=== PATIENT | female | born 2000 | race Caucasian/White ===

== ENCOUNTER → 2023-09-12 15:10 | Outpatient (REF) | payer OTHER, SELFPAY | LOC: RCS 15:10 | PROVIDERS: ATTENDING PHYSICIAN Internal Medicine Cardiovascular Disease; FAMILY PHYSICIAN Family Medicine | DX: R07.89 Other chest pain (principal) | CPT/HCPCS: 93017 ==

== ENCOUNTER → 2023-10-31 11:19 | Outpatient (REF) | payer OTHER, SELFPAY | LOC: HWRAD 11:19 | PROVIDERS: ATTENDING PHYSICIAN Internal Medicine Gastroenterology; FAMILY PHYSICIAN Family Medicine | DX: R63.4 Abnormal weight loss (principal) | CPT/HCPCS: 71260; 74177; Q9967 ==

== ENCOUNTER 2024-02-26 09:32 | Emergency (ER) | payer OTHER, SELFPAY ==
[2024-02-26 09:36] VITALS: BP 114/77
--- NOTE | 2024-02-26 10:33 | ED.GENMED ---
History of Present Illness
General
Chief Complaint: Abdominal Symptoms
Source: patient
Exam Limitations: none
Time Seen by Provider: 02/26/24 10:09
Nursing documentation reviewed up to this point in time: agreed with
History of Present Illness
History of Present Illness:
PT IS A 23 Y/O F
h/o anxiety, daily cannabis use, had been off vaping for months becuase of [facility] but recently 1 mo ago restarted vaping
having more anxiety and nausea/vomiting since last week
she was having more signfiicant voluminous vomiting initially and more severe anxiety
she has been on zoloft for a few months
lsat week she called her PCP who told her to continue her ativan and add benadryl q6 hours (50 mg) but when her anxiety was still present he switched her to xanax 0.5 mg and she took 2 yesterday and 1 today and her anxiety is improved
her vomiting is less, but still present
but now she feels epigastric abd pain which is the primary reason why she is here
she has not fever, chills,
pt has also had a cough for a few weeks; dry hacking cough; she has not had any sputum production or fever but she has had post nasal drip
no sob
no chest pain
Past History
Past History
ED Past Medical History: Psychiatric (Panic disorder)
ED Past Surgical History: None
Social History
Tobacco: Non-smoker
Alcohol: Occasional
Drug: Marijuana
Personal: Single
Living: with family
Review of Systems
Review of Systems
Allergies reviewed?: Yes
All Other Systems: Not applicable
Phy Exam
Physical Exam
Physical Exam:
GENERAL: Alert , in no apparent distress, no vomiting
EYE: pupils equal and reactive
NECK: Supple
ENT: o/p clr, mmm. sipping water, tolerating well
CARDIAC: Regular rate and rhythm .
LUNGS: Clear breath sounds bilaterally, no acute respiratory distress, no wheezes/rales/rhonchi
ABDOMEN: Soft,very minimal epigastric tendrness, no r/g, no cvat, normal bowel sounds
NEUROLOGICAL: Alert and oriented, no focal neuro deficits
SKIN: Warm and dry, skin intact.
MUSCULOSKELETAL: No edema, well perfused. neg padmini's sign
PSYCH: Normal and appropriate interaction. does not seem overly anxious;
Course
Orders/Labs/Results
Orders:
Orders
02/26/24 10:28
Electrocardiogram (*1) Urgent
Reason for Study: Chest Pain
EKG- Treatment ONCE
02/26/24 10:29
0.9% Sodium Chloride 1000 ml [Nss] 1,000 ml IV BOLUS
Test Result ONCE
CR Chest - 2 Views Urgent
Comment:
Reason For Exam: COUGH
02/26/24 10:31
Famotidine [Pepcid] 20 mg IV NOW STA
02/26/24 10:39
Complete Blood Count/With Diff Urgent
Comprehensive Metabolic Panel Urgent
HCG, Serum Qualitative Screen Urgent
Lipase Urgent
Magnesium Urgent
Phos [Phosphorus] Urgent
02/26/24 11:07
Potassium Chloride [KCl] 20 meq 0.9% Sodium Chloride 250 ml [Nss] 250 ml IV NOW
02/26/24 11:24
Potassium Chloride Powder [Klor-Con] 20 meq PO NOW STA
02/26/24 11:26
Sodium/Potassium Phosphate Mix [Neutra-Phos Powder Packet] 250 mg PO NOW STA
02/26/24 11:28
CR Abdomen - 2 Views Urgent
Comment:
Reason For Exam: vomiting, abd pain
02/26/24 12:20
0.9% Sodium Chloride 1000 ml [Nss] 1,000 ml IV BOLUS
Potassium Chloride [KCl] 20 meq PO NOW STA
Sucralfate Suspension [Carafate Suspension] 1 gm PO NOW STA
02/26/24 12:30
US Abdomen Complete/Upper Urgent
Comment:
Reason For Exam: vomiting, epigastric pain
02/26/24 13:37
Urinalysis Reflex To Culture Urgent
Date Specimen was Collected: 02/26/24
Time Specimen was Collected: 13:36
Urine Microscopic Reflex Cult Urgent
Abnormal Lab Results
02/26/24 02/26/24
10:39 13:37
WBC 11.6 H 10^3/uL
(4.8-10.8)
Hgb 11.7 L g/dL
(12.0-16.0)
Hct 33.1 L %
(37.0-47.0)
MCV 76.3 L fL
(81.0-99.0)
Abs Immat Gran (auto) 0.1 H 10^3/uL
(0-0.05)
Absolute Neuts (auto) 9.8 H 10^3/uL
(1.4-6.5)
Absolute Lymphs (auto) 0.9 L 10^3/uL
(1.2-3.4)
Immature Gran % 0.8 H %
(0-0.5)
Neutrophils % 84.9 H %
(42.2-75.2)
Lymphocytes % 8.1 L %
(20.5-51.1)
Potassium 3.2 L mmol/L
(3.5-5.1)
Carbon Dioxide 20 L mmol/L
(22-30)
BUN 6 L mg/dl
(7-17)
Creatinine 0.5 L mg/dL
(0.6-1.0)
Glucose 108 H mg/dl
(70-99)
Phosphorus 1.8 L mg/dl
(2.5-4.5)
ALT 37 H U/L
(0-35)
Urine Ketones 3+ A
(Negative)
Urine Bilirubin 1+ A
(Negative)
Leukocyte Esterase Rfl Trace A
(Negative)
02/26/24 10:39
02/26/24 10:39
Vital Signs
Initial and Last Documented VS:
Initial Vital Signs
Temp Pulse Resp BP Pulse Ox
97.8 F 69 16 114/77 98
02/26/24 09:36 02/26/24 09:36 02/26/24 09:36 02/26/24 09:36 02/26/24 09:36
Last Documented Vital Signs
Temp Pulse Resp BP Pulse Ox
98.3 F 69 16 104/58 96
02/26/24 15:50 02/26/24 09:36 02/26/24 09:36 02/26/24 15:29 02/26/24 15:31
MDM/Problems Addressed
Differential Diagnosis Includes:
gastritis, pancreatitis, CHS, cholelithisais, bowel obstruction, PUD, pneumonia
MDM/Problems Addressed:
23 y/o F
cannabis use
has had hyperemesis disorder
stopped vaping for a while and started again 1 mo ago beause of her anxiety which is why she uses cannabis in the first place
pt says that she tried managing her symptoms with zofran, ativan, benadryl and was switched to xanax and her anxiety is better and her vomiting ismuch less bu tshe has epigastric pain that is sharp and constant and keeping her from eating
she still occasionally vomits
also has a dry cough for a few weeks but chalked that up to vaping
pt has not had fever, black stool, bloody vomit
she feels weak and dehydrated
on exam she is sipping on water, no vomiting
she has mild epigastric tendenress
otherwise normal exam
ekg qtc 450
was not really complaining of nausea but more pain
suspect gastritis
pepcid, carafate really helped her pain
she had AG mild 17 and ketones in urine c/w starvatio ketosis
mild hypokalemia and hypophos
given oral k and phos
and 2 L fluids
cxr indep reviewed: subtle opacity RLL c/w aspiration pneuomina
abd xray neg obs
US neg
was able to tolerate oral brotha nd liquids
d/c home with pepcid bid, carafate
and gi f/u
augmentin for pna- d/w ed attending dr. chavira who agreed
*Critical Care Note
Total Time (30-74mins, 75-104mins- exclusive of procedures): Not Applicable
ED Attending Note
-
Portions of this chart may have been created with voice recognition software.� Occasional wrong word or��sound alike� substitutions may have occurred due to the inherent limitations of voice recognition software.
Discharge Plan
Departure
Patient Disposition: Home (Routine Discharge)
Date of Disposition: 02/26/24
Time of Disposition: 15:08
Patient with high blood pressure during this ER visit?: No
Condition: Fair
Covid-19: Not Applicable
Discharge Problem:
Gastritis, Aspiration pneumonia
Instructions: Aspiration Pneumonia (DC), Gastritis (DC)
Prescriptions:
New
famotidine [Pepcid] 20 mg tablet
20 mg PO BID Qty: 30 0RF
sucralfate [Carafate] 100 mg/mL suspension
10 ml PO AC PRN (Reason: ABDOMINAL PAIN) Qty: 400 0RF
amoxicillin-pot clavulanate 875-125 mg tablet
1 tab PO Q12H Qty: 14 0RF
No Action
DayQuil Sinus Pressure/Pain 30-200 mg Tablet
1 tab PO Q4HPRN PRN (Reason: allergies)
diphenhydramine HCl [Benadryl] 50 mg Capsule
50 mg PO Q6HPRN PRN (Reason: allergies )
ondansetron HCl [Zofran] 4 mg Tablet
4 mg PO Q6HPRN PRN (Reason: nausea)
sertraline 100 mg Tablet
100 mg PO HS
alprazolam [Xanax] 0.5 mg Tablet
0.5 mg PO Q8HPRN PRN (Reason: anxiety)
norgestimate-ethinyl estradiol [Tri-Sprintec (28)] 0.18/0.215/0.25 mg-35 mcg (28) Tablet
1 tab PO HS
Referrals:
Arcadio Sanchez MD [Family Provider] -
Stand Alone Forms: Return to Work
Activity Restrictions/Additional Instructions:
YOUR BLOOD WORK SHOWS YOU HAD A SLIGHTLY LOW PHOSPHORUS AND POTASSIUM
THIS IS LIKELY FROM NOT EATING AND BEING DEHYDRATED
TRY EATING POTASSIUM RICH FOOD FOR THE NEXT FEW DAYS (AVOCADO, BANANA ETC)
SEE YOUR FALY DOCTOR TO HAVE THIS REPEATED
YOUR ULTRASOUND WAS NORMAL
YOUR CHEST XRAY SHOWS MILD ASPIRATION PNEUMONIA IN YOUR R LUNG
THIS IS USUALLY NOT TREATED WITH ANTIBIOTICS UNLESS SYMPTOMS WORSEN WITH COUGH/FEVER
SINCE YOU HAVE ONGOING COUGH,, YOU CAN TRY ANTIBIOTICS FOR 1 WEEK
YOU SHOULD SEE YOUR GI REGARDING YOUR VOMITING AND STOMACH PAIN
IN THE MEANTIME, TRY CARAFATE DIRECTEED NEEDED AND PEPCID 20 MG TWICE A DAY
RETURN FOR: REPETAED VOMITING, SEVERE PAIN, SHORTNESS OF BREATH, HIGH FEVER, BLACK STOOL OR ANY CONCERNS
Interventions
Interventions:
*Risk Screen - Suicide Last Done: 02/26/24 09:38
*General Assessment Last Done: 02/26/24 09:38
*Neglect/Abuse Screening Last Done: 02/26/24 09:38
*ED COVID-19 Vaccine History Last Done: 02/26/24 09:38
*Nursing Disposition Last Done: 02/26/24 15:50
DW-Rmkjdc-Ieeydtslff Assessment Last Done: 02/26/24 10:30
Discharge Date and Time
Discharge Date/Time: 02/26/24 15:51
Print Language: CROATIAN
[2024-02-26] MEDS: PEPCID 20 MG IV (10:41)
[2024-02-26] MEDS: NSS 1000 IV ×2 (10:43→12:31)
[2024-02-26 10:45] VITALS: BP 115/65
[2024-02-26 10:47] LABS: % Basophils 0.3 % (0-2); % Immature Granulocytes 0.8 % (0-0.5); % Lymphocytes 8.1 % (20.5-51.1); % Monocytes 4.9 % (1.7-9.3); % Neutrophils 84.9 % (42.2-75.2); Absolute Eosinophils 0.1 10^3/uL (0-0.7); Absolute Immature Granulocytes 0.1 10^3/uL (0-0.05); Absolute Lymphocytes 0.9 10^3/uL (1.2-3.4); Absolute Monocytes 0.6 10^3/uL (0.1-0.6); Absolute Neutrophils 9.8 10^3/uL (1.4-6.5); Hematocrit 33.1 % (37.0-47.0); Hemoglobin 11.7 g/dL (12.0-16.0); Mean Corp Hgb Conc. 35.3 g/dL (33.0-37.0); Mean Corpuscular Volume 76.3 fL (81.0-99.0); Mean Platelet Volume 9.9 fL (7.4-10.4); Nucleated Red Blood Cells % 0 %; Platelet Count 323 10^3/uL (130-400); Red Blood Cell Count 4.34 10^6/uL (4.20-5.40); Red Cell Dist. Width 13.2 % (11.5-14.5); White Blood Cell Count 11.6 10^3/uL (4.8-10.8)
[2024-02-26 10:57] LABS: HCG, Serum Qualitative Screen Negative
[2024-02-26 11:00] VITALS: BP 111/69
[2024-02-26 11:04] LABS: ALT (SGPT) 37 U/L (0-35); AST (SGOT) 27 U/L (14-36); Alkaline Phosphatase 71 U/L (38-126); Blood Urea Nitrogen 6 mg/dl (7-17); Carbon Dioxide 20 mmol/L (22-30); Chloride 103 mmol/L (98-107); Glucose 108 mg/dl (70-99); Lipase 52 U/L (23-300); Phosphorus 1.8 mg/dl (2.5-4.5); Potassium 3.2 mmol/L (3.5-5.1); Sodium 140 mmol/L (135-145); Total Bilirubin 0.4 mg/dl (0.2-1.3); Total Protein 6.7 g/dl (6.3-8.2); eGFR > 60.00
[2024-02-26] MEDS: KLOR-CON 20 MEQ PO (11:34)
[2024-02-26] MEDS: NEUTRA-PHOS POWDER PACKET 250 MG PO (12:03)
[2024-02-26] MEDS: CARAFATE SUSPENSION 1 GM PO (12:28)
[2024-02-26] MEDS: KCL 20 MEQ PO (12:28)
[2024-02-26 12:32] VITALS: BP 103/60
[2024-02-26 13:00] VITALS: BP 101/53
[2024-02-26 13:54] LABS: Urine Albumin Trace (Neg - Trace); Urine Bilirubin 1+ (Negative); Urine Character Clear (Clear); Urine Color Yellow; Urine Glucose Negative (Negative); Urine Ketone 3+ (Negative); Urine Leukocyte Trace (Negative); Urine Nitrite Negative (Negative); Urine Occult Blood Negative (Negative); Urine Urobilinogen Negative (Neg - 1+)
[2024-02-26 14:33] LABS: Urine Mucus Many
[2024-02-26 14:35] LABS: Urine Amorphous Seen
[2024-02-26 14:36] LABS: Urine Red Blood Cell 0-2 /HPF (0-2)
[2024-02-26 15:29] VITALS: BP 104/58
== END 2024-02-26 15:51 | disposition home or self-care (01) ==
LOC: EMR 09:32
PROVIDERS: Physician Assistant; EMERGENCY PHYSICIAN Emergency Medicine; FAMILY PHYSICIAN Family Medicine
DX: J69.0 Pneumonitis due to inhalation of food and vomit (principal); K29.70 Gastritis, unspecified, without bleeding
CPT/HCPCS: 99285; 96374; 96361 ×2; 71046; 74019; 76700; 80053; 81003; 81015; 83690; 83735; 84100; 84703; 85025; 93005

== ENCOUNTER 2024-06-11 23:36 | Emergency (ER) | payer OTHER, SELFPAY ==
[2024-06-12 00:01] VITALS: BP 128/83
[2024-06-12 00:31] LABS: % Basophils 0.2 % (0-2); % Immature Granulocytes 1.8 % (0-0.5); % Lymphocytes 10.5 % (20.5-51.1); % Monocytes 2.2 % (1.7-9.3); % Neutrophils 85.3 % (42.2-75.2); Absolute Immature Granulocytes 0.2 10^3/uL (0-0.05); Absolute Lymphocytes 1.3 10^3/uL (1.2-3.4); Absolute Monocytes 0.3 10^3/uL (0.1-0.6); Absolute Neutrophils 10.9 10^3/uL (1.4-6.5); Hematocrit 38.1 % (37.0-47.0); Hemoglobin 13.1 g/dL (12.0-16.0); Mean Corp Hgb Conc. 34.4 g/dL (33.0-37.0); Mean Corpuscular Hgb 27.1 pg (27.0-31.0); Mean Corpuscular Volume 78.9 fL (81.0-99.0); Mean Platelet Volume 11.4 fL (7.4-10.4); Nucleated Red Blood Cells % 0 %; Platelet Count 278 10^3/uL (130-400); Red Blood Cell Count 4.83 10^6/uL (4.20-5.40); Red Cell Dist. Width 13.9 % (11.5-14.5); White Blood Cell Count 12.7 10^3/uL (4.8-10.8)
[2024-06-12 00:33] LABS: ALT (SGPT) 17 U/L (0-35); AST (SGOT) 22 U/L (14-36); Albumin 5.1 g/dl (3.5-5.0); Alkaline Phosphatase 62 U/L (38-126); Blood Urea Nitrogen 9 mg/dl (7-17); Calcium 10.1 mg/dl (8.4-10.2); Carbon Dioxide 10 mmol/L (22-30); Chloride 106 mmol/L (98-107); Glucose 145 mg/dl (70-99); Sodium 137 mmol/L (135-145); Total Bilirubin 0.6 mg/dl (0.2-1.3); Total Protein 7.8 g/dl (6.3-8.2); eGFR > 60.00
[2024-06-12 00:35] LABS: Troponin I < 0.012 ng/ml
[2024-06-12 00:44] VITALS: BMI 20.8
[2024-06-12 00:48] VITALS: BP 144/92
[2024-06-12 00:53] VITALS: BP 125/76
[2024-06-12 01:00] VITALS: BP 113/74
[2024-06-12 02:00] VITALS: BP 111/67
--- NOTE | 2024-06-12 02:45 | DOWNTIME ---
There was a [employer] Downtime on 06/12/2024 from 0100 to 06/12/2023 at 0235 . Downtime documentation of patient's care, including medication administrations, has been reconciled in the electronic record per guidelines. Refer to the
patient's paper chart under the miscellaneous tab to see printed paper medication records and downtime forms.
--- NOTE | 2024-06-12 02:45 | ED.GENMED ---
History of Present Illness
General
Chief Complaint: Abdominal Symptoms
Source: patient and family
Time Seen by Provider: 06/12/24 02:39
Nursing documentation reviewed up to this point in time: agreed with
History of Present Illness
History of Present Illness:
*Bed 32- Clau Banegas 23f presents to the emergency department with nausea vomiting and anxiety.� According to patient she had a panic attack that began around noon today.� She took 2 Xanax over the course of the day which helped mitigate
her symptoms.� When she gets panic attacks she typically gets nausea and vomiting.� Today she was concerned because she still had GI upset despite taking the meds.� Upon arrival to the emergency department, she states that her panic attack broke and
she is feeling much better.� She states she did run out off her Xanax.� Denies fever, chills, chest pain, or shortness of breath.� Reports no other symptoms at this time.� She was able to sleep in the room.
Past History
Past History
ED Past Medical History: Psychiatric (Panic disorder)
ED Past Surgical History: None
Social History
Tobacco: Non-smoker
Alcohol: Occasional
Drug: Marijuana
Personal: Single
Living: with family
Review of Systems
Review of Systems
Allergies reviewed?: Yes
Other source history: family
All Other Systems: ROS reviewed and negative except as documented in HPI and ROS
Constitutional: Reports no symptoms
EENT: Reports no symptoms
Respiratory: Reports no symptoms
Cardiac: Reports no symptoms
ABD/GI: Reports no symptoms
: Reports no symptoms
Musculoskeletal: Reports no symptoms
Skin: Reports no symptoms
Neurological: Reports no symptoms
Endocrine: Reports no symptoms
Hematologic/Lymphatic: Reports no symptoms
Psychiatric: Reports anxiety
Phy Exam
General Physical Exam
General Presentation: well appearing and no apparent distress
General Skin: warm and dry
General Habitus: normal
General Mental: alert
General Hydration: appears well hydrated
ENT Exam
ENT Exam: EOMI, pharynx normal, neck supple and normocephalic
Eye Exam
Eye Exam: PERRL, cornea clear and conjunctiva normal
Cardiovascular Exam
Cardiovascular Exam: regular rate/rhythm, no edema, no murmur and normal peripheral pulses
Pulmonary Exam
Pulmonary Exam: lungs clear, no respiratory distress, no rales, no crackles, no rhonchi, no stridor, no wheezing and no cough
Gastrointestinal Exam
Gastrointestinal Exam: normal bowel sounds, non tender, soft, no organomegaly, no pulsatile mass and non distended
Neurological Exam
Neurological Exam: alert, oriented x3, no motor deficits and speech normal
Musculoskeletal Exam
Musculoskeletal Exam: full ROM and no edema
Skin Exam
Skin Exam: normal color, warm/dry, no rash and no petechia
Psychiatric Exam
Psychiatric Exam: normal mood/affect
Course
Orders/Labs/Results
Orders:
Orders
06/11/24 23:38
EKG [Electrocardiogram (*1)] Urgent
Reason for Study: Chest Pain
06/11/24 23:39
EKG- Treatment ONCE
06/11/24 23:59
Complete Blood Count/With Diff Urgent
Comprehensive Metabolic Panel Urgent
Troponin I Urgent
Abnormal Lab Results
06/12/24
00:03
WBC 12.7 H 10^3/uL
(4.8-10.8)
MCV 78.9 L fL
(81.0-99.0)
MPV 11.4 H fL
(7.4-10.4)
Abs Immat Gran (auto) 0.2 H 10^3/uL
(0-0.05)
Absolute Neuts (auto) 10.9 H 10^3/uL
(1.4-6.5)
Immature Gran % 1.8 H %
(0-0.5)
Neutrophils % 85.3 H %
(42.2-75.2)
Lymphocytes % 10.5 L %
(20.5-51.1)
Carbon Dioxide 10 L* mmol/L
(22-30)
Glucose 145 H mg/dl
(70-99)
Albumin 5.1 H g/dl
(3.5-5.0)
06/12/24 00:03
06/12/24 00:03
Vital Signs
Initial and Last Documented VS:
Initial Vital Signs
Temp Pulse Resp BP Pulse Ox
98.1 F 73 22 128/83 99
06/12/24 00:01 06/12/24 00:01 06/12/24 00:01 06/12/24 00:01 06/12/24 00:01
Last Documented Vital Signs
Temp Pulse Resp BP Pulse Ox
98.1 F 73 14 125/76 100
06/12/24 00:01 06/12/24 00:53 06/12/24 00:53 06/12/24 00:53 06/12/24 00:53
*Pulse Oximetry
Patient hypoxic: no
*Critical Care Note
Total Time (30-74mins, 75-104mins- exclusive of procedures): Not Applicable
ED Attending Note
-
Portions of this chart may have been created with voice recognition software.� Occasional wrong word or��sound alike� substitutions may have occurred due to the inherent limitations of voice recognition software.
Discharge Plan
Departure
Patient Disposition: Home (Routine Discharge)
Date of Disposition: 06/12/24
Time of Disposition: 02:51
Presentation/result/management discussed w/ accepting MD/DO: Hospitalist
Patient with high blood pressure during this ER visit?: Yes
Condition: Good
Discharge Problem:
Anxiety, Nausea & vomiting
Instructions: Anxiety in adults - ED discharge instructions, BLOOD PRESSURE
Prescriptions:
New
lorazepam [Ativan] 0.5 mg tablet
0.5 mg PO BID PRN (Reason: anxiety) Qty: 7 0RF
No Action
DayQuil Sinus Pressure/Pain 30-200 mg Tablet
1 tab PO Q4HPRN PRN (Reason: allergies)
diphenhydramine HCl [Benadryl] 50 mg Capsule
50 mg PO Q6HPRN PRN (Reason: allergies )
ondansetron HCl [Zofran] 4 mg Tablet
4 mg PO Q6HPRN PRN (Reason: nausea)
sertraline 100 mg Tablet
100 mg PO HS
alprazolam [Xanax] 0.5 mg Tablet
0.5 mg PO Q8HPRN PRN (Reason: anxiety)
norgestimate-ethinyl estradiol [Tri-Sprintec (28)] 0.18/0.215/0.25 mg-35 mcg (28) Tablet
1 tab PO HS
famotidine [Pepcid] 20 mg tablet
20 mg PO BID Qty: 30 0RF
sucralfate [Carafate] 100 mg/mL suspension
10 ml PO AC PRN (Reason: ABDOMINAL PAIN) Qty: 400 0RF
amoxicillin-pot clavulanate 875-125 mg tablet
1 tab PO Q12H Qty: 14 0RF
Referrals:
Arcadio Sanchez MD [Family Provider] -
Activity Restrictions/Additional Instructions:
It was a pleasure meeting you and taking part in your care. We hope for your continued healing and wellness.
Please read discharge instructions in their entirety. However, they are for general education and may not describe your exact diagnosis at discharge. Information on your ER visit and medical conditions were discussed with you along with appropriate
follow up information...
If indicated, please take your medications as instructed and indicated on discharge paperwork.
Please schedule a follow up appointment as directed. Call to schedule an appointment
Please return to the emergency department with ANY change in, persisting, or worsening of symptoms. If any of your symptoms do not improve, or persist, or become more severe within 6-12 hours, please return to the emergency department for further
care.
Please return to the emergency department if you develop a headache, neck pain/stiffness, fever greater than 100.4F, chest pain, shortness of breath, persistent nausea, vomiting, slurred speech, difficulty walking, numbness/tingling, weakness, signs
of infection or any other symptoms that are worrisome to you.
If you have any questions or concerns please do not hesitate to call the Hospital at or E-mail me directly at [email or web address]
Interventions
Interventions:
*Risk Screen - Suicide Last Done: 06/12/24 00:06
*General Assessment Last Done: 06/12/24 00:44
ED- Fall Risk Assessment Last Done: 06/12/24 00:44
*ED COVID-19 Vaccine History Last Done: 06/12/24 00:44
LP-Ncbavh-Jxwhkxazac Assessment Last Done: 06/12/24 00:44
Discharge Date and Time
Print Language: YAKUT
== END 2024-06-12 03:19 | disposition home or self-care (01) ==
LOC: EMR 23:36
PROVIDERS: EMERGENCY PHYSICIAN Student in an Organized Health Care Education/Training Program; FAMILY PHYSICIAN Family Medicine
DX: F41.9 Anxiety disorder, unspecified (principal); R11.2 Nausea with vomiting, unspecified; R03.0 Elevated blood-pressure reading, without diagnosis of hypertension
CPT/HCPCS: 99284; 80053; 84484; 85025; 93005